=== PATIENT | female | born 1945 | race African-American/Black ===

== ENCOUNTER → 2016-10-03 | Outpatient (CLI) | payer OTHER ==
--- NOTE | ~2016-10-03 | HM ---
Unit #: [id number] #: [id number] Patient: LAKESHA VALDERRAMA [id number] [address] [place], [place] [address] [id number] O MR#: [id number] NAME: LAKESHA VALDERRAMA : 1945 SEX: F STUDY DATE/TIME: 10/03/2016 UNIT: [facility] ROOM: STUDY DESCRIPTION: Attending Physician: Ale Aquino M.D. Referring Physician: Ale Aquino M.D. Primary Care Physician: Ale Aquino M.D. CARDIOLOGY REPORT EXAM 24-hour Holter monitor. DATE APPLIED 10/03/2016 DATE SCANNED 10/07/2016 READ BY [facility] [place] ORDERED BY Ale Aquino M.D. REASON FOR STUDY Syncope. SUMMARY The patient was monitored for 24 hours. A total of 140,209 QRS complexes were analyzed. The rhythm was sinus. Average heart rate was 97 beats per minute. Minimum heart rate of 52 beats per minute occurred at 1:22 a.m. Maximum heart rate of 147 beats per minute occurred at approximately 2:30 p.m. A review of the heart rate histogram showed a normal distribution of heart rates during the day. Nighttime heart rates were actually fairly high. Sleep disordered breathing may be suggested but not confirmed in any way by this fact. Ventricular ectopy: Seventeen isolated beats with no runs. Supraventricular ectopy: Seventy six isolated beats with no runs. Pauses: None. Patient activated events: None. Symptoms: None. Note: Computer driven assessments showed seven runs of SVT. These were evaluated and patient is actually only in sinus rhythm, not SVT. IMPRESSION Normal Holter monitor with rare supraventricular and ventricular ectopy, Unit #: [id number] #: [id number] Patient: LAKESHA VALDERRAMA all of which is benign. No cause for syncope identified. No rhythm based cause for syncope is noted. Dictated by... Pietro Torres M.D. KAREN/kelly TD: 10/11/2016 11:03 JOB #: [id number] CARDIOLOGY REPORT Page 1 of 1 X Pietro Torres MD HOLTER MONITOR REPORT
--- NOTE | ~2016-10-03 | US37 ---
[facility] A Service of [facility] RADIOLOGY TEXT RESULTS PATIENT: LAKESHA VALDERRAMA LOCATION: CNIV : 49 UNIT #: [id number] AGE: [address]: Ale Aquino MD SEX: F ORDER DR: [id number] [facility] [address] [facility]. [place], [place] [address] [id number] O MR#: [id number] Acc #: [id number] NAME: LAKESHA VALDERRAMA : 1945 SEX: F STUDY DATE/TIME: 10/03/2016 12:23 UNIT: [facility] ROOM: STUDY DESCRIPTION: US Carotid W/Doppler Bilateral Attending Physician: Ale Aquino M.D. Referring Physician: Ale Aquino M.D. Ordering Physician: Ale Aquino M.D. Primary Care Physician: Ale Aquino M.D. MEDICAL IMAGING REPORT This report is preliminary unless electronic signature is present EXAM Carotid Doppler 10/03/2016 CLINICAL HISTORY Syncopal episodes for 2 weeks. PROCEDURE Sanders-scale imaging, color Doppler flow imaging and Doppler waveform analysis. FINDINGS There is sanders-scale evidence of plaque in both carotid bulbs. There is antegrade flow in both common, and internal and external carotid and vertebral arteries. Right internal carotid peak systolic velocity is 77 cm/sec with a brisk systolic upstroke. Left internal carotid peak systolic velocity is 64 cm/sec with a brisk systolic upstroke. IMPRESSION 1. There is sanders-scale evidence of plaque in both carotid systems, but velocities and waveforms suggest less than 50% stenosis in both internal carotids by NASCET criteria. 2. Antegrade flow in both external carotid and vertebral arteries as well. Dictated by... Herminio Rose M.D. THIS IS AN ELECTRONICALLY VERIFIED REPORT Herminio Rose M.D. at 10/05/2016 1:52 PM TEV/psc [facility] A Service of [facility] RADIOLOGY TEXT RESULTS PATIENT: LAKESHA VALDERRAMA LOCATION: CNIV : 49 UNIT #: [id number] AGE: [address]: Ale Aquino MD SEX: F ORDER DR: TD: 10/03/2016 19:17 JOB #: [id number] MEDICAL IMAGING REPORT Page 1 of 1 COPY
== END | disposition home or self-care (01) ==
LOC: CNIV 11:27
DX: R55 Syncope and collapse (principal); I65.23 Occlusion and stenosis of bilateral carotid arteries
CPT/HCPCS: 93225; 93226; 93306; 93880